=== PATIENT | male | born 1965 | race Caucasian/White ===

== ENCOUNTER 2018-09-02 04:15 | Emergency (ER) | payer SELFPAY ==
--- NOTE | 2018-09-02 04:47 | EDPHY ---
H & P Stated Complaint: [place] in [place]-rib pain Time Seen by Provider: 09/02/18 04:19 HPI/ROS: Chief Complaint: Fall, rib pain HPI: 53-year-old male fell [place] a [place] river while he was chasing his dog this morning, landing on his left side. Complaining of pain in the left side of his chest. It hurts to take a deep breath. He did not hit his head. No loss of conscious. Has been drinking this morning. Patient is also concerned that he may have been bitten by bed bugs as he has got a skin rash and itching over his legs. Also thinks he may have seen some insects on his dog. Denies any head scratching or itching. Bites are localized to his lower extremities. No fevers or chills. ROS: 10 systems were reviewed and were negative except those elements noted in the HPI. PMH: PTSD Social History: No smoking, no alcohol, no recreational drug use Family History: non-contributory Physical Exam: Gen: Awake, Alert, No Distress HEENT: Nose: no rhinorrhea Eyes: PERRLA, EOMI Mouth: Moist mucosa Neck: Supple, no JVD Chest: Patient has tenderness in his left anterior chest in the mid axillary line, no flail segment, lungs clear to auscultation Heart: S1, S2 normal, no murmur Abd: Soft, non-tender, no guarding Back: no CVA tenderness, no midline tenderness Ext: no edema, non-tender Skin: Multiple excoriated lesions on his bilateral lower extremities below the knees. No burrows or town running suggestive of scabies. I do not notice any nits or insects in his hair. No other lesions. Neuro: CN II-XII intact, Sensation grossly intact, Strength 5/5 in bilateral upper and lower extremities - Personal History Current Tetanus Diphtheria and Acellular Pertussis (TDAP): Yes - Medical/Surgical History Hx Asthma: No Hx Chronic Respiratory Disease: No Hx Diabetes: No Hx Cardiac Disease: No Hx Renal Disease: No Hx Cirrhosis: No Hx Alcoholism: No Hx HIV/AIDS: No Hx Splenectomy or Spleen Trauma: No Other PMH: HTN, ADHD, chroni back pain - Social History Smoking Status: Never smoked Constitutional: Initial Vital Signs Temperature (C) 36.9 C 09/02/18 04:18 Heart Rate 100 09/02/18 04:18 Respiratory Rate 18 09/02/18 04:18 Blood Pressure 156/101 H 09/02/18 04:18 O2 Sat (%) 97 09/02/18 04:18 Allergies/Adverse Reactions: No Known Allergies Allergy (Unverified 09/02/18 04:17) Home Medications: Medication Instructions Recorded Coreg 09/02/18 Ritalin 10mg (*) 09/02/18 morphINE 09/02/18 Medical Decision Making - Diagnostics Imaging Results: No pneumothorax, no obvious rib fractures, no infiltrate per my interpretation Imaging: I viewed and interpreted images myself ED Course/Re-evaluation: 53-year-old male status post fall with left-sided rib pain. No obvious fractures or pneumothorax on chest x-ray. Lungs are clear. He is moving good air. Pain is controlled. Will discharge with outpatient follow-up. Patient has got multiple excoriations. I do not see any evidence of insect infestation. I do not think permethrin treatment is indicated. Will follow up with primary care physician. - Data Points Medications Given: Discontinued Medications Ibuprofen (Motrin) 600 mg PO EDNOW ONE Stop: 09/02/18 05:16 Last Admin: 09/02/18 05:23 Dose: 600 mg Departure - Departure Disposition: Home, Routine, Self-Care Clinical Impression: Chest wall contusion Condition: Good Instructions: Chest Wall Pain (ED) Additional Instructions: Take ibuprofen, 600 mg every 8 hr. You may alternate with acetaminophen, 1000 mg every 8 hr. Referrals: Bessie Yusuf MD [Medical Doctor] - As per Instructions
[2018-09-02] MEDS ORDERED: IBUPROFEN 600 MG TAB PO ONE (05:15)
[2018-09-02 05:53] VITALS: BP 141/76
== END 2018-09-02 05:53 | disposition home or self-care (01) ==
LOC: EDUNIT#
DX: S20.212A Contusion of left front wall of thorax, initial encounter (principal); W19.XXXA Unspecified fall, initial encounter; Y93.02 Activity, running; Y92.828 Other wilderness area as the place of occurrence of the external cause